=== PATIENT | male | born 1990 | race Hispanic/Latino ===

== ENCOUNTER 2017-04-16 11:50 | Emergency (ER) | payer OTHER ==
[2017-04-16 12:14] VITALS: BMI 25.1
[2017-04-16 12:16] VITALS: BP 110/77; PULSE 64; RESP 17; TEMP 98.1; O2SAT 100
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
--- NOTE | 2017-04-16 14:37 | CT ---
CT orbits without IV contrast Indication: Rule out facial fractures Comparison: None available Technique: Axial computed tomography images were obtained of the orbits without the use of intravenous contrast. Coronal and sagittal reformatted images were generated and reviewed. This CT exam was performed using 1 or more of the falling dose reduction techniques: Automated exposure control, adjustment of the MAA and/or kV according to patient size, and/or use of iterative reconstruction technique. Radiation dose: Total exam DLP = 816.94 mGy-cm. Findings: Left facial soft tissue swelling. Acute displaced fractures involving the anterior lateral and posterior lateral hadley of the left maxillary sinus. Fracture includes the zygomatic suture/zygomatic arch. Fluid is seen within the left maxillary sinus. Remainder the visualized osseous structures appear intact. The orbits appear unremarkable. The temporomandibular joints are located. The mastoid air cells appear clear. The paranasal sinuses appear clear. The visualized brain appears unremarkable. Impression: Acute displaced fractures involving the anterior lateral and posterior lateral hadley of the left maxillary sinus. Fracture includes the zygomatic suture/zygomatic arch. Fluid is seen within the left maxillary sinus. Left facial soft tissue swelling.
[2017-04-16] MEDS ORDERED: Amoxicillin-Clav 875-125 mg Tab PO STA (14:47)
== END 2017-04-16 15:15 | disposition home or self-care (01) ==
LOC: H.ER 11:50
DX: S02.401A Maxillary fracture, unspecified side, initial encounter for closed fracture (principal); Y04.0XXA Assault by unarmed brawl or fight, initial encounter; Y92.89 Other specified places as the place of occurrence of the external cause